=== PATIENT | male | born 1980 | race Caucasian/White ===

== ENCOUNTER 2017-09-25 18:21 | Emergency (ER) | payer SELFPAY ==
[~2017-09-25] VITALS: Ht 175.3 cm; Wt 77.1 kg
[2017-09-25 19:24] VITALS: BP 147/100
--- NOTE | 2017-09-25 19:27 | NUR ---
TO BED # 2 AMBULATORY, REPORT GIVEN TO ARLET ANDERSON.
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
[2017-09-25] MEDS ORDERED: BACITRACIN OINT 500 UNITS/GM PKT TP ONE (20:20)
[2017-09-25 21:10] VITALS: BP 125/74
--- NOTE | 2017-09-25 21:10 | NUR ---
Patient discharged with v/s stable. Written and verbal after care instructions given and explained. Patient alert, oriented and verbalized understanding of instructions. Ambulatory with steady gait. All questions addressed prior to discharge. ID band removed. Patient advised to follow up with PMD. Rx of IBUPROFEN AND BACTRIM DS given. Patient educated on indication of medication including possible reaction and side effects. Opportunity to ask questions provided and answered.
== END 2017-09-25 21:10 | disposition home or self-care (01) ==
LOC: MED 18:21
DX: S81.831A Puncture wound without foreign body, right lower leg, initial encounter (principal); S69.91XA Unspecified injury of right wrist, hand and finger(s), initial encounter; W22.03XA Walked into furniture, initial encounter; Y93.89 Activity, other specified; Y92.89 Other specified places as the place of occurrence of the external cause; Y99.8 Other external cause status
CPT/HCPCS: 73130; 90471; 90715; 99284

== ENCOUNTER 2023-05-29 22:17 | Emergency (ER) | payer OTHER ==
[~2023-05-29] VITALS: Ht 175.3 cm; Wt 90.7 kg
[2023-05-29 22:19] VITALS: BP 111/90; PULSE 86; RESP 24; TEMP 97.4; O2SAT 100
[2023-05-29 22:30] VITALS: TEMP 97.4
[2023-05-29 23:59] LABS: ANION GAP 9.7 (8-16); CALCIUM 9.6 mg/dL (8.5-10.1); CREATININE 1.2 mg/dL (0.6-1.3); POTASSIUM 3.7 mmol/L (3.5-5.1)
[2023-05-30 00:11] LABS: AMPHETAMINE, URINE POSITIVE ng/ml (NEG <=1000); BARBITURATE, URINE NEGATIVE ng/ml (NEG <=200); BENZODIAZEPINE, URINE NEGATIVE ng/mL (NEG <=200); CANNABINOID, URINE POSITIVE ng/mL (NEG <=50); COCAINE, URINE NEGATIVE ng/mL (NEG <=300); OPIATE, URINE NEGATIVE ng/mL (NEG <=2000); PHENCYCLIDINE SCREEN,URINE NEGATIVE ng/mL (NEG <=25)
[2023-05-30 00:40] VITALS: BP 116/60; PULSE 75; RESP 17; O2SAT 96
== END 2023-05-30 00:40 | disposition home or self-care (01) ==
LOC: MED 22:17
DX: F15.90 Other stimulant use, unspecified, uncomplicated (principal); Z79.899 Other long term (current) drug therapy
CPT/HCPCS: 36415; 80048; 80305; 99283; G0482